=== PATIENT | female | born 1985 | race Caucasian/White ===

== ENCOUNTER 2018-06-04 10:04 | Emergency (ER) | payer OTHER ==
[2018-06-04] MEDS ORDERED: ONDANSETRON 4 MG TAB.RAPDIS PO ONE (10:39)
--- NOTE | 2018-06-04 10:39 | ER Document Report ---
ED Medical Screen (RME) - General Chief Complaint: Head Injury without LOC Stated Complaint: HEAD INJURY Time Seen by Provider: 06/04/18 10:37 Mode of Arrival: Ambulatory Information source: Patient Notes: This is a 33-year-old female presents to the emergency room with headache, neck pain, nausea. Patient states that she was loading up her trunk when the trunk door came down on the right side of her head (temporal region). This occurred 2 days ago. She states she started to have a headache yesterday and it was worse today. She is been nauseous without vomiting. No loss of consciousness. She has a lot of tenderness to the right temporal area. He denies fever, chills, photophobia. TRAVEL OUTSIDE OF THE [place] IN LAST 30 DAYS: No - HPI Onset: Yesterday Onset/Duration: Gradual Quality of pain: Dull Severity: Moderate Pain Level: 2 Associated Symptoms: denies: Chest pain, Fever, Slow to respond Exacerbated by: Other - Touching the right temporal region Relieved by: Denies Similar symptoms previously: No Recently seen / treated by doctor: No - Related Data Smoking: Non-smoker Frequency of alcohol use: None Drug Abuse: None Allergies/Adverse Reactions: codeine [Codeine] Allergy (Verified 06/04/18 10:05) Past Medical History - General Information source: Patient - Social History Cigarette use (# per day): No Chew tobacco use (# tins/day): No Frequency of alcohol use: None Drug Abuse: None Lives with: Family Family history: Reviewed & Not Pertinent - Past Medical History Cardiac Medical History: Reports: Hx Hypertension Endocrine Medical History: Reports: Hx Diabetes Mellitus Type 2 Renal/ Medical History: Denies: Hx Peritoneal Dialysis Psychiatric Medical History: Comment Only: Hx Depression - anxiety Past Surgical History: Reports: Hx Section - x1, Hx Orthopedic Surgery - L KNEE - Immunizations Hx Diphtheria, Pertussis, Tetanus Vaccination: No Review of Systems - Review of Systems Constitutional: denies: Chills, Fever EENT: See HPI Cardiovascular: denies: Chest pain, Palpitations, Heart racing Respiratory: denies: Cough, Hemoptysis, Wheezing Gastrointestinal: Diarrhea, Nausea. denies: Abdomen distended, Abdominal pain, Vomiting Genitourinary: No symptoms reported Female Genitourinary: No symptoms reported Musculoskeletal: See HPI Skin: No symptoms reported. denies: Change in color, Lesions, Rash Hematologic/Lymphatic: No symptoms reported Neurological/Psychological: Headaches Physical Exam - Vital signs Vitals: Temp Pulse Resp BP Pulse Ox 98.2 F 79 14 138/89 H 100 06/04/18 10:10 06/04/18 10:10 06/04/18 10:10 06/04/18 10:10 06/04/18 10:10 Notes: Physical exam: GENERAL: Patient is alert and oriented x3, complaining of right temporal pain. HEAD: Normocephalic. She does have tenderness over the right temporal region without obvious crepitus or skin changes. EYES: Pupils equal round and reactive to light, extraocular movements intact, sclera anicteric, conjunctiva are normal. ENT: TMs normal, nares patent, oropharynx clear without exudates. Moist mucous membranes. NECK: Normal range of motion, supple without obvious mass or JVD. LUNGS: Breath sounds clear to auscultation bilaterally and equal. No wheezes rales or rhonchi. HEART: Regular rate and rhythm without murmurs, rubs or gallops. ABDOMEN: Soft, normoactive bowel sounds. No tenderness to palpation. No guarding, no rebound. No masses appreciated. EXTREMITIES: Normal range of motion, no pitting or edema. No clubbing or cyanosis. NEUROLOGICAL: Cranial nerves II through XII grossly intact. Motor 5/5, sensory grossly intact, cerebellar (finger to nose) good, reflexes symmetrical, normal speech, Romberg negative. PSYCH: Normal mood, normal affect. SKIN: Warm, Dry, normal turgor, no rashes or lesions noted. Course - Vital Signs Vital signs: Temp Pulse Resp BP Pulse Ox 97.8 F 84 16 132/70 H 100 06/04/18 12:29 06/04/18 12:29 06/04/18 12:29 06/04/18 12:29 06/04/18 12:29 - Diagnostic Test Radiology reviewed: Image reviewed, Reports reviewed - Head CT shows no acute bleed Doctor's Discharge - Discharge Clinical Impression: Concussion Clinical Impression: (Ruled Out): Caution Condition: Stable Disposition: HOME, SELF-CARE Instructions: Post-Concussion Syndrome ([facility]) Additional Instructions: Recommendation: Rest, drink plenty of fluids, you can take Tylenol and Advil for pain. Take Reglan for nausea and it may help with the headache. Zofran for nausea as well. Follow-up with your primary care doctor: Bring a copy of today's results with you when you go. Return to the emergency room for worsening headache, persistent vomiting or any concerns or getting worse. Prescriptions: Metoclopramide HCl [Reglan 10 mg Tablet] 1 - 2 tab PO ASDIR PRN #14 tablet PRN Reason: Referrals: ENMA NASCIMENTO MD [Primary Care Provider] - Follow up as needed
--- NOTE | 2018-06-04 11:28 | RADIOLOGY REPORT (SQ) ---
EXAM DESCRIPTION: CT HEAD WITHOUT COMPLETED DATE/TIME: 06/04/2018 11:12 am REASON FOR STUDY: head trauma COMPARISON: None. TECHNIQUE: Axial images acquired through the brain without intravenous contrast. Images reviewed wi th bone, brain and subdural windows. Additional sagittal and coronal reconstructions were generated. Images stored on PACS. All CT scanners at this facility use dose modulation, iterative reconstruction, and/or weight based d osing when appropriate to reduce radiation dose to as low as reasonably achievable (ALARA). [facility]: Dose Right [facility]: CareDose [facility]: Dose Right [facility]: Teradose 4D [facility]: Checkd.In RADIATION DOSE: CT Rad equipment meets quality standard of care and radiation dose reduction techniq ues were employed. CTDIvol: 53.2 mGy. DLP: 1044 mGy-cm. mGy. LIMITATIONS: None. FINDINGS: VENTRICLES: Normal size and contour. CEREBRUM: No masses. No hemorrhage. No midline shift. No evidence for acute infarction. Normal gra y/white matter differentiation. No areas of low density in the white matter. CEREBELLUM: No masses. No hemorrhage. No alteration of density. No evidence for acute infarction. EXTRAAXIAL SPACES: No fluid collections. No masses. ORBITS AND GLOBE: No intra- or extraconal masses. Normal contour of globe without masses. CALVARIUM: No fracture. PARANASAL SINUSES: Mild right maxillary sinus disease. SOFT TISSUES: No mass or hematoma. OTHER: No other significant finding. IMPRESSION: NORMAL BRAIN CT WITHOUT CONTRAST. EVIDENCE OF ACUTE STROKE: NO. COMMENT: Quality ID # [id number]: Final reports with documentation of one or more dose reduction techniques (e.g., Automated exposure control, adjustment of the mA and/or kV according to patient size, use of iterative reconstruction technique) TECHNICAL DOCUMENTATION: JOB ID: [id number]- All Rights Reserved Reading location - IP/workstation name: [email or web address]
[2018-06-04 12:30] VITALS: BP 132/70
[2018-06-04] MEDS ORDERED: ONDANSETRON ODT 4 MG TAB (6 TAB/ER DISP) PO PRN (12:31)
== END 2018-06-04 12:39 | disposition home or self-care (01) ==
LOC: ER 10:04
DX: F07.81 Postconcussional syndrome (principal); S09.90XA Unspecified injury of head, initial encounter; R51 Headache; M54.2 Cervicalgia; R11.0 Nausea; W22.8XXA Striking against or struck by other objects, initial encounter; I10 Essential (primary) hypertension; E11.9 Type 2 diabetes mellitus without complications
CPT/HCPCS: 99283; 70450; S0119